=== PATIENT | male | born 1955 | race Caucasian/White ===

== ENCOUNTER → 2017-05-20 07:29 | Outpatient (CLI) | payer OTHER, SELFPAY ==
[2017-05-20 10:33] LABS: Creatinine, Serum 1.18 mg/dL (0.70-1.30); EST Glomerular Filtration Rate 67 mL/min (>60); Est Glom Filt Rate - Afr Amer 81 mL/min (>60)
== END ==
PROVIDERS: Family Provider Family Medicine; PCP Family Medicine; Visit Provider Urology
DX: C61 Malignant neoplasm of prostate (principal); R97.20 Elevated prostate specific antigen [PSA]; Z13.89 Encounter for screening for other disorder
CPT/HCPCS: 36415; 82565

== ENCOUNTER → 2017-12-22 08:03 | Outpatient (CLI) | payer OTHER, SELFPAY ==
[2017-12-22 10:21] LABS: PSA,Total- Diagnostic 2.51 ng/mL (0.0-4.0)
== END ==
PROVIDERS: Family Provider Family Medicine; PCP Family Medicine; Referring Provider Urology; Visit Provider Urology
DX: C61 Malignant neoplasm of prostate (principal)
CPT/HCPCS: 36415; 84153

== ENCOUNTER → 2018-07-20 07:24 | Outpatient (CLI) | payer OTHER, SELFPAY ==
[2018-07-20 10:41] LABS: Anion Gap 10 (5-15); BUN 23 mg/dL (7-18); BUN/Creat Ratio 18.3 RATIO (10-20); Calcium,Total 8.9 mg/dL (8.5-10.1); Chloride 105 mmol/L (98-107); Cholesterol 212 mg/dL (200); Creatinine, Serum 1.26 mg/dL (0.70-1.30); EST Glomerular Filtration Rate 62 mL/min (>60); Est Glom Filt Rate - Afr Amer 75 mL/min (>60); Glucose 96 mg/dL (74-106); High Density Lipoprotein 30 mg/dL; PSA,Total- Diagnostic 1.77 ng/mL (0.0-4.0); Potassium 4.1 mmol/L (3.5-5.1); Sodium Level 141 mmol/L (136-145); Triglycerides 216 mg/dL; Very Low Density Lipoprotein 43 mg/dL (5-40)
== END ==
PROVIDERS: Family Provider Family Medicine; PCP Family Medicine; Referring Provider Family Medicine; Visit Provider Family Medicine
DX: C61 Malignant neoplasm of prostate (principal); G25.81 Restless legs syndrome; E78.00 Pure hypercholesterolemia, unspecified
CPT/HCPCS: 36415; 80048; 80061; 84153

== ENCOUNTER → 2019-01-12 16:36 | Outpatient (CLI) | payer OTHER, SELFPAY ==
[2019-01-12 17:55] LABS: PSA,Total- Diagnostic 1.23 ng/mL (0.0-4.0)
== END ==
PROVIDERS: Family Provider Family Medicine; PCP Family Medicine; Referring Provider Family Medicine; Visit Provider Family Medicine
DX: C61 Malignant neoplasm of prostate (principal)
CPT/HCPCS: 36415; 84153

== ENCOUNTER → 2019-11-02 15:31 | Outpatient (CLI) | payer OTHER, SELFPAY ==
[2019-11-02 18:17] LABS: PSA,Total - Annual Screen 0.34 ng/mL (0.00-4.00)
== END ==
PROVIDERS: PCP Family Medicine; Referring Provider Family Medicine; Visit Provider Family Medicine
DX: C61 Malignant neoplasm of prostate (principal)
CPT/HCPCS: 36415; 84153; G0103

== ENCOUNTER → 2019-12-06 10:02 | Outpatient (CLI) | payer OTHER, SELFPAY ==
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
== END ==
PROVIDERS: PCP Family Medicine; Referring Provider Family Medicine; Visit Provider Family Medicine
DX: M79.672 Pain in left foot (principal)
CPT/HCPCS: 73630

== ENCOUNTER → 2020-03-13 07:05 | Outpatient (CLI) | payer OTHER, SELFPAY ==
[2020-03-13 10:18] LABS: ALB/GLOB Ratio 1.2 RATIO (0.9-2.4); AST(SGOT) 27 U/L (15-37); Alanine Aminotransfer ALT/SGPT 50 U/L (16-61); Albumin, Serum 4.2 g/dL (3.2-5.0); Alkaline Phosphatase 84 U/L (45-117); Anion Gap 6 (5-15); BUN 16 mg/dL (7-18); Calcium,Total 8.8 mg/dL (8.5-10.1); Chloride 105 mmol/L (98-107); Cholesterol 219 mg/dL (200); Creatinine, Serum 1.14 mg/dL (0.70-1.30); EST Glomerular Filtration Rate 69 mL/min (>60); Est Glom Filt Rate - Afr Amer 83 mL/min (>60); Globulin 3.5 g/dL (2.2-4.2); Glucose 98 mg/dL (74-106); High Density Lipoprotein 40 mg/dL; Potassium 4.1 mmol/L (3.5-5.1); Protein, Total 7.7 g/dL (6.4-8.2); Sodium Level 138 mmol/L (136-145); Triglycerides 192 mg/dL; Very Low Density Lipoprotein 38 mg/dL (5-40)
== END ==
PROVIDERS: PCP Family Medicine; Referring Provider Family Medicine; Visit Provider Family Medicine
DX: E78.00 Pure hypercholesterolemia, unspecified (principal)
CPT/HCPCS: 36415; 80053; 80061

== ENCOUNTER → 2021-03-20 07:33 | Outpatient (CLI) | payer BC, SELFPAY ==
[2021-03-20 10:41] LABS: Anion Gap 8 (5-15); BUN 18 mg/dL (7-18); BUN/Creat Ratio 16.8 RATIO (10-20); Calcium,Total 8.9 mg/dL (8.5-10.1); Chloride 106 mmol/L (98-107); Cholesterol 195 mg/dL (200); Creatinine, Serum 1.07 mg/dL (0.70-1.30); EST Glomerular Filtration Rate 74 mL/min (>60); Est Glom Filt Rate - Afr Amer 89 mL/min (>60); Glucose 95 mg/dL (74-106); High Density Lipoprotein 36 mg/dL; PSA,Total - Annual Screen 0.12 ng/mL (0.00-4.00); Potassium 4.1 mmol/L (3.5-5.1); Sodium Level 140 mmol/L (136-145); Triglycerides 139 mg/dL; Very Low Density Lipoprotein 28 mg/dL (5-40)
== END ==
PROVIDERS: PCP Family Medicine; Referring Provider Nurse Practitioner Family; Visit Provider Nurse Practitioner Family
DX: C61 Malignant neoplasm of prostate (principal); E78.00 Pure hypercholesterolemia, unspecified; Z13.1 Encounter for screening for diabetes mellitus
CPT/HCPCS: 36415; 80048; 80061; 84153; G0103

== ENCOUNTER → 2021-06-25 10:31 | Outpatient (CLI) | payer BC, SELFPAY ==
[2021-06-25 12:23] LABS: Hematocrit 45.8 % (40-54); Hemoglobin 16.2 g/dL (13.0-16.5); Mean Corp Hgb Conc 35.4 g/dL (32-36); Mean Corpuscular Hgb 34.5 pg (27.0-32.0); Mean Corpuscular Volume 97.7 fL (80-94); Mean Platelet Vol. 11.1 fl (6.2-12.0); Platelet Count 216 K/mm3 (150-450); RBC Distribution Width CV 12.8 % (11.6-14.6); RBC Distribution Width SD 45.4 fl (35.1-43.9); Red Blood Count 4.69 M/mm3 (4.6-6.2)
[2021-06-25 13:03] LABS: Ferritin 398 ng/mL (26-388); Iron 85 ug/dL (65-175)
[2021-06-25 15:33] LABS: Iron Binding Capacity,Total 327 ug/dL (250-450)
== END ==
PROVIDERS: PCP Family Medicine; Visit Provider Family Medicine
DX: G47.33 Obstructive sleep apnea (adult) (pediatric) (principal); G25.81 Restless legs syndrome; R40.0 Somnolence; E61.1 Iron deficiency
CPT/HCPCS: 36415; 82728; 83540; 83550; 85027

== ENCOUNTER → 2022-03-28 | Outpatient (CLI) | payer BC, SELFPAY ==
[2022-03-28 08:03] LABS: ALB/GLOB Ratio 0.9 RATIO (0.9-2.4); AST(SGOT) 17 U/L (15-37); Alanine Aminotransfer ALT/SGPT 37 U/L (16-61); Albumin, Serum 3.6 g/dL (3.2-5.0); Alkaline Phosphatase 92 U/L (45-117); Anion Gap 5 (5-15); BUN 17 mg/dL (7-18); BUN/Creat Ratio 18.6 RATIO (10-20); Calcium,Total 8.6 mg/dL (8.5-10.1); Chloride 106 mmol/L (98-107); Cholesterol 182 mg/dL (200); Creatinine, Serum 0.91 mg/dL (0.70-1.30); EST Glomerular Filtration Rate 88 mL/min (>60); Est Glom Filt Rate - Afr Amer 107 mL/min (>60); Glucose 103 mg/dL (74-106); High Density Lipoprotein 25 mg/dL; PSA,Total - Annual Screen 0.08 ng/mL (0.00-4.00); Potassium 4.2 mmol/L (3.5-5.1); Protein, Total 7.6 g/dL (6.4-8.2); Sodium Level 140 mmol/L (136-145); Triglycerides 147 mg/dL; Very Low Density Lipoprotein 29 mg/dL (5-40)
== END | disposition home or self-care (01) ==
PROVIDERS: PCP Nurse Practitioner Family; Referring Provider Nurse Practitioner Family; Visit Provider Nurse Practitioner Family
DX: C61 Malignant neoplasm of prostate (principal); Z13.1 Encounter for screening for diabetes mellitus; E78.00 Pure hypercholesterolemia, unspecified
CPT/HCPCS: 36415; 80053; 80061; 84153; G0103

== ENCOUNTER 2023-03-02 12:30 | Outpatient (RCR) | payer BC, SELFPAY ==
--- NOTE | 2023-02-26 14:20 | HP.OTEVAL_ITS ---
Patient's Visit Information Visit Information Visit Information: WENDI JENKINS is a 67 year old M, referred to Occupational Therapy by Dr. Julián Osorio DO, with a diagnosis of sprain/strain muscles L (MRI [facility] laminar interstitial tear ulnar styloid). Date of Evaluation: 02/24/23 Occupational Therapist: Amy Lao, AGAPITOR/[place], CHT Subjective Subjective: This 67 year old male was seen for OT eval with dx of left wrist sprain- pt states he noticed injury at some point about 4 months ago(Oct) -pt states when he initially injured his wrist he did tape it and used anti- inflammatory medication and Tylenol. pt states he would like to return to playing golf and playing softball. wrist hurts mostly with swing of club with the snap of his wrist- (right before upswing) pt did see [facility] where he had x-ray and and MRI. Notes by Brian Norris PA-C states trying to rule out avulsion injury or possible tear. casted for 3 weeks and removed on 02/18/23. pt reports sight pain with forearm supination but feeling better- pt states he wants to play golf in Apr. as he has an all expense paid golf trip planned. Pain left wrist: Current Pain Intensity: 2 Pain Intensity Range: 0 and 3 ROM Forearm: supination right/left both at 70* Wrist: right 65/70 left 65/70 Strength [employer]: right 105# left 55# Lateral Pinch: right 24# left 26# Tripod Pinch: right 30# left 30# Strength Comments: pt demo weakness of left UE Sensation Sensation Comments: denies Goals Goal:ROM equal to unaffected hand: Yes Goal:[employer]/Pinch strength at least 75% of unaffected hand: Yes Goal:No pain with affected hand use: Yes Comment: bracing Other Goal: pt will demo understanding of using supportive bracing for heavy work tasks by end of 3rd visit. Rehabilitation General Assessment: Pt demo with limited left wrist ROM and pain with resistive muscle testing. This has decreased pts ind. with ADls, IADls and playing golf. Pt would benefit from skilled OT services 1-2x week for 6 weeks to return pt to his PLOF. Today therapist ed. pt on supportive bracing for ulnar side of wrist-, isometric wrist flex/ext- along with triceps/biceps to improve pts strength. pt demo understanding and agree to POC. Rehabilitation Potential: Good Anticipated Interventions Anticipated Interventions: A/AAROM/PROM, Strengthening, Triggerpoint Release, Modalities, Orthoses, Joint Protection/Energy Conservation, Ergonomic Education, Education re assistive Equipment, Education re Diagnosis and Home Program Visit Plan Frequency: 1-2x /Week Duration: 6 Weeks TEXT: Thank you for the opportunity to evaluate your patient. For Medicare and Medicare HMO plans, please review the plan of care and approve it. It will need to be FAXED BACK to us at [phone] for Medicare purposes. Please let me know if there are questions or concerns regarding this plan of care. Physician Signature: Date:
--- NOTE | 2023-07-09 08:29 | HP.OT.NRP ---
Patient Information Patient Information: WENDI JENKINS was seen in my office for initial evaluation on 02/24/23. The following Plan of Care was established for this patient: POC Established Initial Frequency: 1-2x /Week Initial Duration: 6 Weeks Anticipated Interventions Anticipated Interventions: A/AAROM/PROM, Strengthening, Triggerpoint Release, Modalities, Orthoses, Joint Protection/Energy Conservation, Ergonomic Education, Education re assistive Equipment, Education re Diagnosis and Home Program Last Seen Last Seen: This patient was last seen in our office 05/14/23. Pertinent comments regarding their Occupational therapy will appear below: pt was seen for OT desi. Pt has not scheduled further apts and is d/c at this time due to time lapse in services. At this point I will be discontinuing this patient from occupational therapy. I would be happy to see this patient again in the future if found appropriate by the physician. Thank you! Amy Lao, OTR/L, CHT
== END 2023-03-02 19:00 | disposition home or self-care (01) ==
LOC: OT 12:30
PROVIDERS: PCP Nurse Practitioner Family; Referring Provider Student in an Organized Health Care Education/Training Program; Visit Provider Student in an Organized Health Care Education/Training Program
DX: S66.812D Strain of other specified muscles, fascia and tendons at wrist and hand level, left hand, subsequent encounter (principal); S63.592D Other specified sprain of left wrist, subsequent encounter
CPT/HCPCS: 97110; 97166

== ENCOUNTER → 2023-03-31 | Outpatient (CLI) | payer BC, SELFPAY ==
[2023-03-31 12:20] LABS: Absolute Lymphocyte Count 1.74 X10^3/uL (0.83-4.51); Absolute Neutrophil Count 4.1 X10^3/uL (2.0-7.7); Basophil# 0.09 X10^3/uL; Basophil% 1.3 % (0-1); Eosinophil# 0.22 X10^3/uL; Eosinophils% 3.3 % (0-5); Hematocrit 45.5 % (40-54); Hemoglobin 15.2 g/dL (13.0-16.5); Lymphocyte # 1.74 X10^3/ul (0.83-4.51); Lymphocyte % 25.9 % (19-41); Mean Corp Hgb Conc 33.4 g/dL (32-36); Mean Corpuscular Hgb 32.6 pg (27.0-32.0); Mean Corpuscular Volume 97.6 fL (80-94); Mean Platelet Vol. 10.8 fl (6.2-12.0); Monocyte# 0.61 X10^3/uL; Monocyte% 9.1 % (0-10); NRBC Flagged by Analyzer 0 % (0-5); Neutrophil # 4.05 X10^3/uL (2.7-7.7); Neutrophil % 60.1 % (47-70); Platelet Count 221 K/mm3 (150-450); RBC Distribution Width CV 12.9 % (11.6-14.6); RBC Distribution Width SD 45.7 fl (35.1-43.9); Red Blood Count 4.66 M/mm3 (4.6-6.2); White Blood Count 6.7 K/mm3 (4.4-11.0)
[2023-03-31 12:38] LABS: Anion Gap 5 (5-15); BUN 20 mg/dL (7-18); BUN/Creat Ratio 16.8 RATIO (10-20); Chloride 105 mmol/L (98-107); Cholesterol 252 mg/dL (200); Creatinine, Serum 1.19 mg/dL (0.70-1.30); EST Glomerular Filtration Rate 65 mL/min (>60); Est Glom Filt Rate - Afr Amer 78 mL/min (>60); Glucose 106 mg/dL (74-106); High Density Lipoprotein 43 mg/dL; PSA,Total - Annual Screen 0.07 ng/mL (0.00-4.00); Potassium 4.1 mmol/L (3.5-5.1); Sodium Level 139 mmol/L (136-145); Triglycerides 149 mg/dL; Very Low Density Lipoprotein 30 mg/dL (5-40)
== END | disposition home or self-care (01) ==
LOC: MTLAB 10:22
PROVIDERS: PCP Family Medicine; Referring Provider Family Medicine; Visit Provider Family Medicine
DX: Z00.00 Encounter for general adult medical examination without abnormal findings (principal); G25.81 Restless legs syndrome
CPT/HCPCS: 36415; 80048; 80061; 84153; 85025; G0103

== ENCOUNTER → 2023-06-18 | Outpatient (CLI) | payer BC, SELFPAY ==
[2023-06-18 12:51] LABS: Ferritin 421 ng/mL (26-388)
== END | disposition home or self-care (01) ==
LOC: MTLAB 09:50
PROVIDERS: PCP Family Medicine; Referring Provider Internal Medicine Pulmonary Disease; Visit Provider Internal Medicine Pulmonary Disease
DX: G25.81 Restless legs syndrome (principal)
CPT/HCPCS: 36415; 82728

== ENCOUNTER → 2023-12-22 | Outpatient (CLI) | payer MEDICARE, SELFPAY ==
[2023-12-22 10:52] LABS: ALB/GLOB Ratio 1.1 RATIO (0.9-2.4); AST(SGOT) 29 U/L (15-37); Alanine Aminotransfer ALT/SGPT 51 U/L (16-61); Albumin, Serum 3.9 g/dL (3.2-5.0); Alkaline Phosphatase 78 U/L (45-117); Anion Gap 8 (5-15); BUN 15 mg/dL (7-18); BUN/Creat Ratio 15.2 RATIO (10-20); Calcium,Total 9.2 mg/dL (8.5-10.1); Chloride 109 mmol/L (98-107); Cholesterol 161 mg/dL (200); Creatinine, Serum 0.99 mg/dL (0.70-1.30); EST Glomerular Filtration Rate 80 mL/min (>60); Est Glom Filt Rate - Afr Amer 97 mL/min (>60); Globulin 3.6 g/dL (2.2-4.2); Glucose 116 mg/dL (74-106); High Density Lipoprotein 42 mg/dL; PSA,Total- Diagnostic 0.05 ng/mL (0.0-4.0); Potassium 4.3 mmol/L (3.5-5.1); Protein, Total 7.5 g/dL (6.4-8.2); Sodium Level 139 mmol/L (136-145); Triglycerides 92 mg/dL; Very Low Density Lipoprotein 18 mg/dL (5-40)
== END | disposition home or self-care (01) ==
LOC: MTLAB 08:07
PROVIDERS: PCP Family Medicine; Referring Provider Family Medicine; Visit Provider Family Medicine
DX: C61 Malignant neoplasm of prostate (principal); E78.00 Pure hypercholesterolemia, unspecified
CPT/HCPCS: 36415; 80053; 80061; 84153

== ENCOUNTER → 2024-04-26 | Outpatient (CLI) | payer MEDICARE, SELFPAY ==
[2024-04-26 10:55] LABS: Ferritin 252 ng/mL (26-388); Iron 131 ug/dL (65-175); Iron Binding Capacity,Total 319 ug/dL (250-450)
== END | disposition home or self-care (01) ==
LOC: MTLAB 07:34
PROVIDERS: PCP Family Medicine; Referring Provider Internal Medicine Pulmonary Disease; Visit Provider Internal Medicine Pulmonary Disease
DX: R79.89 Other specified abnormal findings of blood chemistry (principal); R79.0 Abnormal level of blood mineral
CPT/HCPCS: 36415; 82728; 83540; 83550

== ENCOUNTER → 2024-10-25 | Outpatient (CLI) | payer MEDICARE, SELFPAY ==
[2024-10-25 09:46] LABS: Hematocrit 40.7 % (40-54); Hemoglobin 14.1 g/dL (13.0-16.5); Mean Corp Hgb Conc 34.6 g/dL (32-36); Mean Corpuscular Volume 95.8 fL (80-94); Mean Platelet Vol. 11.5 fl (6.2-12.0); Platelet Count 199 K/mm3 (150-450); RBC Distribution Width CV 13.0 % (11.6-14.6); RBC Distribution Width SD 45.9 fl (35.1-43.9); Red Blood Count 4.25 M/mm3 (4.6-6.2); White Blood Count 5.3 K/mm3 (4.4-11.0)
[2024-10-25 10:33] LABS: Ferritin 299 ng/mL (37-417); Iron 138 ug/dL (65-175); Iron Binding Capacity,Total 309 ug/dL (250-450); Iron Binding Capacity,Unsat 171 ug/dL (228-428)
== END | disposition home or self-care (01) ==
LOC: MTLAB 07:10
PROVIDERS: PCP Family Medicine; Referring Provider Internal Medicine Pulmonary Disease; Visit Provider Internal Medicine Pulmonary Disease
DX: G25.81 Restless legs syndrome (principal)
CPT/HCPCS: 36415; 82728; 83540; 83550; 85027

== ENCOUNTER → 2025-01-19 | Outpatient (CLI) | payer MEDICARE, SELFPAY ==
[2025-01-19 11:04] LABS: Cholesterol 171 mg/dL (<=200); Low Density Lipoprotein Calc. 113 mg/dL; PSA,Total- Diagnostic 0.04 ng/mL (0.00-4.00); Triglycerides 114 mg/dL; Very Low Density Lipoprotein 23 mg/dL (5-40); cholesterol:hdl ratio screen 4.66
[2025-01-19 11:16] LABS: Anion Gap 11 (5-15); BUN 17 mg/dL (4-19); BUN/Creat Ratio 16.0 RATIO (10-20); Calcium,Total 9.6 mg/dL (7.6-11.0); Carbon Dioxide 27.1 mmol/L (21.0-32.0); Chloride 103 mmol/L (98-108); Glucose 103 mg/dL (70-99); Potassium 4.7 mmol/L (3.3-5.1)
== END | disposition home or self-care (01) ==
LOC: MTLAB 07:21
PROVIDERS: PCP Family Medicine; Referring Provider Family Medicine; Visit Provider Family Medicine
DX: Z00.00 Encounter for general adult medical examination without abnormal findings (principal); E78.00 Pure hypercholesterolemia, unspecified
CPT/HCPCS: 36415; 80048; 80061; 84153